=== PATIENT | female | born 1945 | race Caucasian/White ===

== ENCOUNTER → 2020-10-22 | Day surgery (SDC) | payer OTHER | END | disposition home or self-care (01) | LOC: JRADUS-SUR 08:43 | PROVIDERS: ATTEND Internal Medicine Geriatric Medicine | PROC: 0H9T3ZX Drainage of Right Breast, Percutaneous Approach, Diagnostic (ICD-10-PCS; principal; 2020-10-22) | DX: N60.01 Solitary cyst of right breast (principal) | CPT/HCPCS: 10005; 76942-TC; 77065-TC; 87899 ==

== ENCOUNTER 2021-07-13 07:38 | Day surgery (SDC) | payer OTHER ==
[2021-07-08 14:31] VITALS: BMI 25.9
[2021-07-13] MEDS ORDERED: LIDOCAINE HCL/PF 2% SDV 5ML VIAL ONE (07:47)
[2021-07-13] MEDS ORDERED: PROPOFOL 20 ML ONE ×6 (07:47→08:09)
[2021-07-13 09:08] VITALS: TEMP 97.7
[2021-07-13 09:16] VITALS: BP 123/57; PULSE 68
== END 2021-07-13 09:29 | disposition home or self-care (01) ==
LOC: FASU-ENDO 07:38
PROVIDERS: ATTEND Internal Medicine Gastroenterology
PROC: 0DBC8ZX Excision of Ileocecal Valve, Via Natural or Artificial Opening Endoscopic, Diagnostic (ICD-10-PCS; 2021-07-13)
PROC: 0DBK8ZX Excision of Ascending Colon, Via Natural or Artificial Opening Endoscopic, Diagnostic (ICD-10-PCS; principal; 2021-07-13 08:26)
DX: Z12.11 Encounter for screening for malignant neoplasm of colon (principal); D12.0 Benign neoplasm of cecum; D12.2 Benign neoplasm of ascending colon; K57.30 Diverticulosis of large intestine without perforation or abscess without bleeding
CPT/HCPCS: 88305-TC

== ENCOUNTER 2021-11-27 12:54 | Emergency (ER) | payer OTHER ==
[2021-11-27 13:13] VITALS: BP 156/86; PULSE 80; RESP 20; TEMP 98.4; BMI 23.1
== END 2021-11-27 14:56 | disposition home or self-care (01) ==
LOC: FER 12:54
DX: S42.034A Nondisplaced fracture of lateral end of right clavicle, initial encounter for closed fracture (principal); W10.8XXA Fall (on) (from) other stairs and steps, initial encounter
CPT/HCPCS: 71046-TC-FY; 73000-TC-RT-FY; 73030-TC-RT-FY; 99284-25

== ENCOUNTER 2022-01-01 18:39 | Inpatient (IN) | payer OTHER ==
[2022-01-01 18:48] VITALS: BMI 24.7
[2022-01-01] MEDS ORDERED: ONDANSETRON 4 MG/2 ML VIAL IVPUSH ONE (19:24)
[2022-01-01] MEDS ORDERED: ONDANSETRON 4 MG/2 ML VIAL ONE (19:27)
[2022-01-01 19:37] LABS: HEMATOCRIT 32.6 % (32.4-45.2); HEMOGLOBIN 11.7 G/dL (10.7-15.3); MCH 31.5 pg (25.7-33.7); MEAN CELL VOLUME 87.5 fl (80-96); MEAN PLT VOLUME 8.3 fl (7.5-11.1); PLATELET COUNT 224.6 10^3/uL (134-434); RBC 3.72 10^6/uL (3.60-5.2); WHITE BLOOD COUNT 7.2 10^3/uL (4.0-10.8)
[2022-01-01 19:49] LABS: ALBUMIN 3.9 g/dl (3.4-5.0); BILIRUBIN,TOTAL 1.5 mg/dl (0.2-1); CREATININE 1.3 mg/dl (0.55-1.3); TOT PROT 6.1 g/dl (6.4-8.2)
[2022-01-01 20:28] LABS: PLATELET ESTIMATE ADEQUATE
[2022-01-01] MEDS ORDERED: ACETAMINOPHEN 325 MG TABLET (FP) PO PRN (20:46)
[2022-01-01] MEDS ORDERED: DOCUSATE SODIUM 100 MG CAPSULE (FP) PO PRN (20:46)
[2022-01-02] MEDS ORDERED: MELATONIN 1 MG TABLET PO PRN (00:31)
[2022-01-02] MEDS: ONDANSETRON 4 MG/2 ML VIAL IVPUSH PRN ×3 (00:58→17:27)
[2022-01-02 05:31] LABS: CALCIUM 10.1 mg/dL (8.5-10.1)
[2022-01-02 05:32] LABS: BLOOD UREA NITROGEN 18.3 mg/dL (7-18)
[2022-01-02] MEDS ORDERED: LEVOTHYROXINE NA 150 MCG TABLET PO SCH (07:00)
[2022-01-02 09:28] LABS: ALBUMIN 3.8 g/dl (3.4-5.0); BILIRUBIN,TOTAL 1.5 mg/dl (0.2-1); CALCIUM 10.6 mg/dl (8.5-10); CREATININE 1.2 mg/dl (0.55-1.3)
[2022-01-02 09:30] LABS: MAGNESIUM 1.8 mg/dL (1.8-2.4); PHOSPHOROUS 3.2 mg/dl (2.5-4.9)
[2022-01-02] MEDS ORDERED: ENOXAPARIN NA (PORCINE) 40 MG/0.4 ML DISP.SYRIN SQ SCH (10:00)
[2022-01-02] MEDS ORDERED: ASPIRIN COATED 81 MG TABLET.EC PO SCH (10:00)
[2022-01-02] MEDS ORDERED: ATENOLOL 50 MG TABLET (FP) PO SCH ×2 (10:00→10:26)
[2022-01-02] MEDS: FAMOTIDINE 20 MG TABLET PO SCH (10:07)
[2022-01-02 11:48] LABS: BASO % 0.8 % (0-2.0); EOS % 1.2 % (0-4.5); HEMATOCRIT 31.6 % (32.4-45.2); HEMOGLOBIN 10.7 GM/dL (10.7-15.3); LYMPH % 11.1 % (8-40); MCH 29.6 pg (25.7-33.7); MCHC 33.9 g/dl (32.0-36.0); MEAN CELL VOLUME 87.4 fl (80-96); MEAN PLT VOLUME 8.5 fl (7.5-11.1); MONO % 12.8 % (3.8-10.2); NEUT % 74.1 % (42.8-82.8); PLATELET COUNT 212 10^3/uL (134-434); RBC 3.61 M/mm3 (3.60-5.2); RDW 14.2 % (11.6-15.6); WHITE BLOOD COUNT 6.9 K/mm3 (4.0-10.0)
[2022-01-02] MEDS: SODIUM CHLORIDE 1 GM TABLET PO SCH ×2 (15:16→21:17)
[2022-01-02 20:19] VITALS: RESP 19
[2022-01-02] MEDS: ENOXAPARIN NA (PORCINE) 80 MG/0.8 ML DISP.SYRIN SQ SCH (21:17)
[2022-01-03] MEDS: ONDANSETRON 4 MG/2 ML VIAL IVPUSH PRN ×2 (01:16→06:56)
[2022-01-03] MEDS ORDERED: LEVOTHYROXINE NA 112 MCG TABLET (FP) PO SCH (07:00)
[2022-01-03] MEDS ORDERED: LEVOTHYROXINE NA 25 MCG TABLET (FP) PO SCH (07:00)
[2022-01-03] MEDS ORDERED: LEVOTHYROXINE NA 150 MCG TABLET PO SCH ×3 (07:00)
[2022-01-03 07:06] VITALS: BP 138/61; PULSE 53; TEMP 98
[2022-01-03 09:04] LABS: INR 1.1 (0.83-1.09); PROTHROMBIN TIME (PATIENT) 12.7 SEC (9.7-13.0)
[2022-01-03 09:05] LABS: BILIRUBIN,TOTAL 1.5 mg/dl (0.2-1); CALCIUM 10.1 mg/dl (8.5-10); CREATININE 1.1 mg/dl (0.55-1.3)
[2022-01-03 09:07] LABS: ACTIVATED PTT 34.8 SECONDS (25.2-36.5)
[2022-01-03] MEDS: ENOXAPARIN NA (PORCINE) 80 MG/0.8 ML DISP.SYRIN SQ SCH (10:01)
[2022-01-03] MEDS: FAMOTIDINE 20 MG TABLET PO SCH (10:01)
[2022-01-03] MEDS: SODIUM CHLORIDE 1 GM TABLET PO SCH (10:01)
[2022-01-04] MEDS ORDERED: ATENOLOL 25 MG TABLET (FP) PO SCH (10:00)
== END 2022-01-03 13:45 | disposition home or self-care (01) | DRG 645 ==
LOC: FER 18:39 → FM/S 20:47
PROVIDERS: ADMIT Internal Medicine; ATTEND Nurse Practitioner Family
DX: E22.2 Syndrome of inappropriate secretion of antidiuretic hormone (principal); E78.5 Hyperlipidemia, unspecified; K21.9 Gastro-esophageal reflux disease without esophagitis; I48.91 Unspecified atrial fibrillation; I12.9 Hypertensive chronic kidney disease with stage 1 through stage 4 chronic kidney disease, or unspecified chronic kidney disease; N18.9 Chronic kidney disease, unspecified; E89.0 Postprocedural hypothyroidism; D64.9 Anemia, unspecified; E83.52 Hypercalcemia; R11.0 Nausea
CPT/HCPCS: 36415; 71045-TC-FY; 80048; 80053; 81003; 82247; 82248; 82436; 82533; 83735; 83930; 83935; 83970; 84100; 84133; 84300; 84436; 84439; 84443; 84479; 84484; 84550; 85025; 85610; 85730; 87086; 93005; 93010; 99285-25; C9803-CS; U0003; U0005

== ENCOUNTER 2023-04-27 08:35 | Day surgery (SDC) | payer OTHER ==
[2023-04-22 12:52] VITALS: BMI 25.0
[2023-04-27] MEDS ORDERED: NEO/POLYMYX B SULF/DEXAMETH OPHTHALMIC 5ML BOTTLE ONE (08:55)
[2023-04-27] MEDS ORDERED: LIDOCAINE 1% P/F 10 MG/ML VIAL ONE (08:55)
[2023-04-27] MEDS: TROPICAMIDE 1% OPHTH SOLN 15 ML BOTTLE ONE ×3 (08:55→09:05)
[2023-04-27] MEDS ORDERED: TETRACAINE 0.5% OPHTH SOLN 2 ML BOTTLE ONE (08:55)
[2023-04-27] MEDS: PHENYLEPHRINE 2.5% OPTHALMIC DROP 2ML BOTTLE ONE ×3 (08:55→09:05)
[2023-04-27] MEDS ORDERED: CARBACHOL 0.01% INTRA-OCULAR 1.5 ML VIAL ONE (08:55)
[2023-04-27] MEDS ORDERED: EPINEPHrine/PF 1 MG/1 ML (1:1,000) AMPULE ONE (08:55)
[2023-04-27] MEDS: CYCLOPENTOLATE 2% OPHTH SOLN 2 ML BOTTLE ONE ×3 (08:55→09:05)
[2023-04-27] MEDS: CIPROFLOXACIN HCL 0.3% OPHTH 2.5ML BOTTLE ONE ×3 (08:55→09:05)
[2023-04-27] MEDS ORDERED: BSS (NA/CA/MG/K) BALANCED SALT SOLUTION OPHTH SOLN 15 ML BOTTLE ONE (08:55)
[2023-04-27] MEDS ORDERED: MIDAZOLAM HCL 2 MG/2 ML SINGLE DOSE VIAL ONE (10:06)
[2023-04-27 10:50] VITALS: RESP 18; TEMP 97.7
[2023-04-27 11:18] VITALS: BP 121/70; PULSE 58
== END 2023-04-27 11:15 | disposition home or self-care (01) ==
LOC: FASU 08:35
PROVIDERS: ATTEND Ophthalmology
PROC: 08RJ3JZ Replacement of Right Lens with Synthetic Substitute, Percutaneous Approach (ICD-10-PCS; principal; 2023-04-27 10:28)
DX: H26.8 Other specified cataract (principal)
CPT/HCPCS: 66984; V2632; 82962

== ENCOUNTER 2023-06-15 10:35 | Day surgery (SDC) | payer OTHER ==
[2023-06-09 15:12] VITALS: BMI 25.0
[2023-06-15] MEDS ORDERED: EPINEPHrine/PF 1 MG/1 ML (1:1,000) AMPULE ONE (10:43)
[2023-06-15] MEDS ORDERED: TETRACAINE 0.5% OPHTH SOLN 2 ML BOTTLE ONE (10:44)
[2023-06-15] MEDS ORDERED: BSS (NA/CA/MG/K) BALANCED SALT SOLUTION OPHTH SOLN 15 ML BOTTLE ONE (10:44)
[2023-06-15] MEDS ORDERED: NEO/POLYMYX B SULF/DEXAMETH OPHTHALMIC 5ML BOTTLE ONE (10:44)
[2023-06-15] MEDS ORDERED: CARBACHOL 0.01% INTRA-OCULAR 1.5 ML VIAL ONE (10:44)
[2023-06-15] MEDS ORDERED: LIDOCAINE 1% P/F 10 MG/ML VIAL ONE (10:44)
[2023-06-15] MEDS: CYCLOPENTOLATE 2% OPHTH SOLN 2 ML BOTTLE ONE (11:05)
[2023-06-15] MEDS: PHENYLEPHRINE 2.5% OPTHALMIC DROP 2ML BOTTLE ONE (11:10)
[2023-06-15] MEDS: CIPROFLOXACIN 0.3% EYE DROPS 5 ML BOTTLE ONE (11:10)
[2023-06-15] MEDS: TROPICAMIDE 1% OPHTH SOLN 15 ML BOTTLE ONE (11:10)
[2023-06-15] MEDS ORDERED: MIDAZOLAM HCL 2 MG/2 ML SINGLE DOSE VIAL ONE (11:49)
[2023-06-15 12:58] VITALS: RESP 19; TEMP 97.3
[2023-06-15 13:00] VITALS: BP 124/56; PULSE 50
== END 2023-06-15 13:05 | disposition home or self-care (01) ==
LOC: FASU 10:35
PROVIDERS: ATTEND Ophthalmology
PROC: 08RK3JZ Replacement of Left Lens with Synthetic Substitute, Percutaneous Approach (ICD-10-PCS; principal; 2023-06-15 12:17)
DX: H26.8 Other specified cataract (principal)
CPT/HCPCS: 66984; V2632; 82962